=== PATIENT | female | born 1985 | race Asian ===

== ENCOUNTER 2018-09-10 16:21 | Emergency (ER) | payer MEDICAID ==
[~2018-09-10] VITALS: Ht 154.9 cm; Wt 48.0 kg
[2018-09-10] MEDS ORDERED: SODIUM CHLORIDE 0.9% 1,000 ML IV ONE (18:15)
[2018-09-10] MEDS ORDERED: ONDANSETRON HCL 4MG/2ML INJ IV ONE (18:15)
[2018-09-10 18:40] LABS: BASOPHILS % 0.9 % (0.0-2.0); EOSINOPHILS % 1.9 % (0.0-5.0); HEMOGLOBIN. 13.1 g/dL (12.0-16.0); LYMPHOCYTES % 37.3 % (20.0-50.0); MEAN CORPUSCULAR HEMOGLOBIN 28.8 pg (28.0-32.0); MEAN CORPUSCULAR VOLUME 85.7 fL (81.0-99.0); MEAN PLATELET VOLUME 7.6 fl (7.4-10.4); MONOCYTES % 6.7 % (2.0-8.0); NEUTROPHILS % 53.2 % (40.0-76.0); PLATELET 362 x1000/uL (130-400); RED BLOOD CELL COUNT 4.55 mill/uL (4.2-5.4); RED CELL DISTRIBUTION WIDTH 13.9 % (11.6-14.6)
[2018-09-10 18:41] LABS: CHLORIDE 105 mEq/L (98-107)
[2018-09-10 18:43] LABS: PROTHROMBIN TIME 10.2 sec (9.6-11.0)
[2018-09-10 18:45] LABS: CLARITY URINE CLEAR (CLEAR); COLOR URINE YELLOW (YELLOW); KETONES URINE NEGATIVE (NEGATIVE); LEUKOCYTE ESTERASE URINE TRACE (NEGATIVE); NITRITE URINE NEGATIVE (NEGATIVE); OCCULT BLOOD URINE TRACE (NEGATIVE); PROTEIN URINE NEGATIVE (NEGATIVE); SPECIFIC GRAVITY URINE 1.008 (1.005-1.030); UROBILINOGEN URINE 0.2 E.U./dL (0.2-1.0)
[2018-09-10] MEDS ORDERED: AZITHROMYCIN 500 MG TABLET PO ONE (20:30)
[2018-09-10] MEDS ORDERED: CEFTRIAXONE SODIUM 250 MG/VIAL IM ONE (20:30)
[2018-09-10] MEDS ORDERED: FLUCONAZOLE 100MG TABLET PO ONE (20:30)
[2018-09-10] MEDS ORDERED: FLUCONAZOLE 150MG TABLET PO NR (21:15)
[2018-09-10 21:26] VITALS: BP 112/70
== END 2018-09-10 21:33 | disposition home or self-care (01) ==
LOC: ER 16:21
DX: N89.8 Other specified noninflammatory disorders of vagina (principal); R10.30 Lower abdominal pain, unspecified; R30.0 Dysuria
CPT/HCPCS: 36415; 80053; 81003; 81025; 83690; 85025; 85610; 96372; 96374; 99283; C1893; J0696; J2405; J7030; Z7610

== ENCOUNTER 2023-02-16 11:35 | Emergency (ER) | payer MEDICAID, OTHER ==
[~2023-02-16] VITALS: Ht 165.1 cm; Wt 91.0 kg
[2023-02-16 11:44] VITALS: O2SAT 100
[2023-02-16] MEDS ORDERED: TETANUS, DIPHTHERIA, PERTUSSIS VAC/PF 0.5ML (>10YR OLD) IM ONE ×2 (12:00→13:45)
[2023-02-16] MEDS ORDERED: LIDOCAINE HCL/PF 1% 10 MG/ML 5ML VIAL INFIL ONE (12:00)
[2023-02-16] MEDS ORDERED: BACITRACIN ZINC OINT UDPKT TOP ONE (12:00)
[2023-02-16] MEDS ORDERED: CEPH500T MT (13:17)
[2023-02-16] MEDS ORDERED: SULF1TAB48 MT (13:17)
[2023-02-16 14:06] VITALS: BP 128/78; PULSE 88; RESP 18; TEMP 98.7
== END 2023-02-16 14:08 | disposition home or self-care (01) ==
LOC: ER 11:35
DX: L02.411 Cutaneous abscess of right axilla (principal)
CPT/HCPCS: 90715; 10060; 90471; 99283; J3490; Z7610

== ENCOUNTER 2023-02-19 10:41 | Emergency (ER) | payer OTHER ==
[~2023-02-19] VITALS: Ht 160 cm; Wt 77.0 kg
[~2023-02-19 10:41] MED LIST: CEPH500T MT; SULF1TAB48 MT
[2023-02-19 11:18] VITALS: RESP 20
[2023-02-19 11:21] VITALS: BP 117/75; PULSE 86; TEMP 98.6; O2SAT 99
== END 2023-02-19 13:20 | disposition home or self-care (01) ==
LOC: ER 11:15
DX: L02.412 Cutaneous abscess of left axilla (principal)
CPT/HCPCS: 99281

== ENCOUNTER 2023-12-10 11:11 | Emergency (ER) | payer SELFPAY ==
[~2023-12-10] VITALS: Ht 167.6 cm; Wt 72.6 kg
[2023-12-10 11:23] VITALS: BP 139/81; PULSE 102; RESP 16; TEMP 98.7; O2SAT 96
[2023-12-10] MEDS: WATER FOR IRRIGATION,STERILE 1,000 ML IRRIG.SOLN IR ONE (12:00)
[2023-12-10] MEDS ORDERED: OFLO5DRO4 RIGHT EAR (13:07)
== END 2023-12-10 13:37 | disposition home or self-care (01) ==
LOC: ER 11:11
DX: T16.1XXA Foreign body in right ear, initial encounter (principal); Z98.890 Other specified postprocedural states; X58.XXXA Exposure to other specified factors, initial encounter; Y93.89 Activity, other specified; Y92.89 Other specified places as the place of occurrence of the external cause; Y99.8 Other external cause status
CPT/HCPCS: 69200; 99284; Z7610 ×2

== ENCOUNTER 2025-01-15 15:41 | Emergency (ER) | payer OTHER ==
[~2025-01-15] VITALS: Ht 162.6 cm; Wt 80.0 kg
[~2025-01-15 15:41] MED LIST changes: +OFLO5DRO4 RIGHT EAR
[2025-01-15 15:57] VITALS: O2SAT 98
[2025-01-15] MEDS ORDERED: OFLO5DRO4 RIGHT EAR (17:54)
[2025-01-15] MEDS ORDERED: AMOX1TAB16 MT (17:54)
[2025-01-15] MEDS ORDERED: IBUP-2029 MT (17:54)
[2025-01-15 18:11] VITALS: BP 130/78; PULSE 79; RESP 16; TEMP 36.9; O2SAT 98
== END 2025-01-15 18:10 | disposition home or self-care (01) ==
LOC: ER 15:41
DX: H60.91 Unspecified otitis externa, right ear (principal); Z98.890 Other specified postprocedural states; Z79.899 Other long term (current) drug therapy
CPT/HCPCS: 99283